=== PATIENT | female | born 1955 | race Caucasian/White ===

== ENCOUNTER 2020-11-21 17:29 | Inpatient (IN) ==
[2020-11-21] MEDS ORDERED: NALOXONE 0.4 MG/ML VIAL IV STA ×2 (17:30→17:36)
[2020-11-21] MEDS ORDERED: ROCURONIUM 100 MG/10 ML VIAL IV ONE (17:45)
[2020-11-21] MEDS ORDERED: ETOMIDATE 20 MG/10 ML VIAL IV STA (17:48)
[2020-11-21] MEDS ORDERED: ROCURONIUM 100 MG/10 ML VIAL IV STA (17:50)
[2020-11-21 18:01] LABS: Basophils % 0.4 % (0.0-0.8); Eosinophils # 0.2 10*3/uL (0.0-0.87); Eosinophils % 2.3 % (0.00-10.9); Hematocrit 40.4 VOL% (35.7-47.0); Hemoglobin 13.5 GM/DL (12.0-16.0); Immature Granulocytes % 0.4 %; Immature Granulocytes Absolute 0.03 #; Lymphocytes % 22.9 % (21.3-54.2); Mean Corpuscular HGB Conc 33.4 GM/DL (32-36); Monocytes % 12.4 % (1.7-12.7); Neutrophils % 61.6 % (38.7-73.9); Platelet Count 269 T/CUMM (130-400); Red Blood Count 4.21 MC/CUMM (3.8-5.5); White Blood Count 8.5 T/CUMM (4-12)
[2020-11-21 18:10] LABS: Acetaminophen < 2.0 UG/ML (10-30); Salicylate < 2.8 MG/DL (2.8-20)
[2020-11-21 18:13] LABS: Alanine Aminotransferase 19 U/L (13-56); Albumin 3.7 G/DL (3.4-5.0); Alkaline Phosphatase 64 U/L (45-117); Aspartate Amino Transferase 20 U/L (0-37); Blood Urea Nitrogen 32 MG/DL (7-18); Calcium 9.7 MG/DL (8.5-10.1); Carbon Dioxide 30 MMOL/L (21-32); Estimated Glom Filtration Rate 30 ML/MIN; Glucose 125 MG/DL (74-106); Sodium 136 MMOL/L (136-145); Total Protein 7.3 G/DL (6.4-8.3)
[2020-11-21] MEDS ORDERED: SODIUM CHLORIDE 0.9% 1,000 ML IV STA (18:15)
[2020-11-21 18:28] LABS: INR 1.1; PT Patient Result 11.3 SECS (9.8-11.9)
[2020-11-21 18:30] LABS: Bacteria,Urine Occasional /HPF (Few); Bilirubin,Urine Negative (Negative); Blood, Urine Negative (Negative); Glucose,Urine (UA) Negative (Negative); Ketones,Urine Negative (Negative); Nitrite,Urine Negative (Negative); Protein,Urine Negative; RBC,Urine 2 /HPF (0-4); Squamous Epithelial Cell,Urine Occasional /HPF (0-10); Urine Appearance CLEAR (Clear); Urine Color Yellow (Yellow); Urine Specific Gravity 1.015 (1.001-1.035); Urine Urobilinogen < 2.0 EU/DL (0.2-1.0); WBC,Urine 116 /HPF (0-6)
[2020-11-21 18:32] LABS: ABG Base Excess 6.7 MMOL/L (-2.5-2.5); ABG HCO3 30.6 MMOL/L (20-26); ABG PCO2 31.4 MM HG (35-48); ABG PH 7.567 (7.35-7.45); ABG TCO2 24.7 MMOL/L (23-27)
[2020-11-21] MEDS ORDERED: cefTRIAXone 1,000 MG in SODIUM CHLORIDE 0.9% 100 ML IV STA (18:33)
[2020-11-21 18:40] LABS: Barbiturates Screen,Urine Negative (Negative); Benzodiazepines Screen,Urine Positive (Negative); Cannabinoid Screen,Urine Negative (Negative); Opiate Screen,Urine Positive (Negative); Phencyclidine Screen,Urine Negative (Negative)
[2020-11-21] MEDS ORDERED: ACETAMINOPHEN 325 MG TABLET PO PRN (20:20)
[2020-11-21] MEDS ORDERED: ALBUTEROL 2.5 MG/3 ML NEB RESP TX PRN (20:20)
[2020-11-21] MEDS ORDERED: diphenhydrAMINE CAP 25 MG CAPSULE PO PRN (20:20)
[2020-11-21] MEDS ORDERED: NICOTINE 21 MG/24 HR PATCH TRANSDERM PRN (20:20)
[2020-11-21] MEDS ORDERED: ONDANSETRON 4 MG/2 ML VIAL IV PRN (20:20)
[2020-11-21] MEDS ORDERED: hydrALAZINE 20 MG/1 ML VIAL IV PRN (20:20)
[2020-11-21] MEDS ORDERED: SODIUM CHLORIDE 0.9% 2,000 ML IV STA (20:30)
[2020-11-21] MEDS ORDERED: VECURONIUM 10 MG VIAL IV ONE (21:41)
[2020-11-21] MEDS ORDERED: VECURONIUM 10 MG VIAL IV STA (21:44)
[2020-11-21 21:48] LABS: ABG Base Excess 2.7 MMOL/L (-2.5-2.5); ABG HCO3 26.9 MMOL/L (20-26); ABG Oxygen Saturation 99.6 % (95-100); ABG PCO2 31.6 MM HG (35-48); ABG PH 7.511 (7.35-7.45); ABG TCO2 22.6 MMOL/L (23-27)
[2020-11-21] MEDS: SODIUM CHLORIDE 0.9% 1,000 ML IV SCH (21:50)
[2020-11-21] MEDS: MORPHINE 4 MG/1 ML VIAL IV PRN (21:53)
[2020-11-22] MEDS: MORPHINE 4 MG/1 ML VIAL IV PRN (02:57)
[2020-11-22] MEDS: SODIUM CHLORIDE 0.9% 1,000 ML IV SCH ×2 (05:07→11:40)
[2020-11-22] MEDS ORDERED: DIAZEPAM 10 MG/2 ML SYRINGE IM PRN (08:24)
[2020-11-22] MEDS ORDERED: tiZANidine 4 MG TABLET PO PRN (08:43)
[2020-11-22] MEDS ORDERED: DIAZEPAM 5 MG TABLET PO PRN ×2 (08:44→17:38)
[2020-11-22] MEDS: FLUoxetine 20 MG CAPSULE PO SCH ×3 (11:39→21:06)
[2020-11-22] MEDS: ESTROGENS (CONJ) 0.625 MG TABLET PO SCH (11:39)
[2020-11-22 12:39] LABS: Basophils % 0.3 % (0.0-0.8); Eosinophils # 0.3 10*3/uL (0.0-0.87); Eosinophils % 3.3 % (0.00-10.9); Hematocrit 34.2 VOL% (35.7-47.0); Immature Granulocytes % 0.3 %; Immature Granulocytes Absolute 0.03 #; Lymphocytes # 1.9 10*3/uL (1.4-4.0); Lymphocytes % 21.6 % (21.3-54.2); Mean Corpuscular HGB Conc 33.6 GM/DL (32-36); Mean Corpuscular Volume 93.7 FL (87-102); Mean Platelet Volume 10.7 FL (9.6-12.0); Monocytes % 11.6 % (1.7-12.7); Neutrophils % 62.9 % (38.7-73.9); Red Blood Count 3.65 MC/CUMM (3.8-5.5); Red Cell Distribution Width 13.3 % (9.3-17.3); White Blood Count 8.8 T/CUMM (4-12)
[2020-11-22 12:40] LABS: Hemoglobin 11.5 GM/DL (12.0-16.0); Platelet Count 210 T/CUMM (130-400)
[2020-11-22 13:21] LABS: Bilirubin,Total 0.6 MG/DL (0.2-1.0); Calcium 8.1 MG/DL (8.5-10.1); Osmolality,Calculated 279.7 MOS/KG (273-304); Potassium 2.8 MMOL/L (3.5-5.1)
[2020-11-22] MEDS ORDERED: POTASSIUM CHLORIDE 20 MEQ TABLET PO ONE ×2 (15:09→23:00)
[2020-11-22] MEDS: POTASSIUM CHLORIDE RIDER 10 MEQ in PREMIX 1 EACH IV SCH ×3 (15:46→18:01)
[2020-11-22] MEDS ORDERED: POLYVINYL ALCOHOL 1.4% OPH SOLN 15 ML BOTTLE BOTH EYES PRN (18:31)
[2020-11-22] MEDS: cefTRIAXone 1,000 MG in SYRINGE 1 EACH IV SCH (21:18)
[2020-11-23 05:23] LABS: Calcium 8.4 MG/DL (8.5-10.1); Osmolality,Calculated 281.1 MOS/KG (273-304); Potassium 4.1 MMOL/L (3.5-5.1)
[2020-11-23] MEDS: FLUoxetine 20 MG CAPSULE PO SCH ×3 (09:16→20:42)
[2020-11-23] MEDS: ESTROGENS (CONJ) 0.625 MG TABLET PO SCH (09:16)
[2020-11-24] MEDS: cefTRIAXone 1,000 MG in SYRINGE 1 EACH IV SCH (00:52)
[2020-11-24] MEDS ORDERED: lisinopriL 20 MG TABLET PO SCH (06:30)
[2020-11-24] MEDS: ESTROGENS (CONJ) 0.625 MG TABLET PO SCH (10:26)
[2020-11-24] MEDS: FLUoxetine 20 MG CAPSULE PO SCH ×2 (10:26→14:25)
[2020-11-24 15:32] VITALS: BP 189/97
== END 2020-11-24 16:45 | disposition home or self-care (01) | DRG 917 ==
LOC: EDUNIT# → EDBD → N.ED 17:29 → SUATTDRO 20:20 → N.EDINP 20:20 → N.TELEN 11-22 10:53
PROVIDERS: ADMIT Internal Medicine; ATTEND Internal Medicine